=== PATIENT | female | born 1995 | race Caucasian/White ===

== ENCOUNTER 2017-11-14 17:37 | Emergency (ER) | payer MEDICAID ==
[~2017-11-14] VITALS: Ht 165.1 cm; Wt 55.5 kg
[2017-11-14 17:39] VITALS: BP 125/91
[2017-11-14] MEDS ORDERED: IBUPROFEN 200 MG TABLET ONE (18:06)
[2017-11-14] MEDS ORDERED: IBUPROFEN 200 MG TABLET PO ONE (18:30)
== END 2017-11-14 18:23 | disposition home or self-care (01) ==
LOC: ED 18:05
DX: S16.1XXA Strain of muscle, fascia and tendon at neck level, initial encounter (principal); M54.12 Radiculopathy, cervical region; F17.200 Nicotine dependence, unspecified, uncomplicated; X50.1XXA Overexertion from prolonged static or awkward postures, initial encounter; Y93.84 Activity, sleeping; Y99.8 Other external cause status; Y92.89 Other specified places as the place of occurrence of the external cause
CPT/HCPCS: 99283

== ENCOUNTER 2018-03-15 23:14 | Emergency (ER) | payer MEDICAID ==
[~2018-03-15] VITALS: Ht 160 cm; Wt 55.0 kg
[2018-03-15 23:19] VITALS: BP 114/81
[2018-03-15] MEDS ORDERED: ACETAMINOPHEN 500 MG TABLET ONE (23:47)
[2018-03-16] MEDS ORDERED: LIDODERM 5% PATCH TD ONE
[2018-03-16] MEDS ORDERED: ACETAMINOPHEN 500 MG TABLET PO ONE
== END 2018-03-16 00:10 | disposition home or self-care (01) ==
LOC: ED 03-16 00:04
DX: O26.891 Other specified pregnancy related conditions, first trimester (principal); O99.331 Smoking (tobacco) complicating pregnancy, first trimester; Z3A.13 13 weeks gestation of pregnancy; S16.1XXA Strain of muscle, fascia and tendon at neck level, initial encounter; X58.XXXA Exposure to other specified factors, initial encounter; Y93.89 Activity, other specified; Y99.8 Other external cause status; Y92.89 Other specified places as the place of occurrence of the external cause
CPT/HCPCS: 99283

== ENCOUNTER 2018-07-05 05:22 | Outpatient (CLI) | payer MEDICAID ==
[2018-07-05 06:36] LABS: AMPHETAMINE SCREEN, URINE Negative (Negative); BARBITURATE SCREEN, URINE Negative (Negative); BENZODIAZEPINE SCREEN, URINE Negative (Negative); CANNABINOID SCREEN, URINE Negative (Negative); COCAINE SCREEN, URINE Negative (Negative); METHADONE SCREEN, URINE Negative (Negative); OPIATE SCREEN, URINE Negative (Negative)
== END 2018-07-05 05:51 | disposition home or self-care (01) ==
LOC: LDOP 05:22
PROVIDERS: ATTEND Obstetrics & Gynecology
DX: O26.899 Other specified pregnancy related conditions, unspecified trimester (principal); R07.89 Other chest pain; Z3A.00 Weeks of gestation of pregnancy not specified
CPT/HCPCS: 59025; 80307; 99211; G0463

== ENCOUNTER 2018-07-05 06:02 | Emergency (ER) | payer MEDICAID ==
[~2018-07-05] VITALS: Ht 165.1 cm; Wt 64.0 kg
[2018-07-05 06:06] VITALS: BP 107/72
--- NOTE | 2018-07-05 06:11 | NUR ---
PT PRESENTS TO ED C/O R ARM PAINx2 WEEKS AGO AND CPx1 WEEK. STATES CP TIGHT AND PRESSURE WORSE W/ DEEP BREATHING AND LAYING DOWN. PT IS 30 WEEKS . DENIES ANY CARDIAC HX. STATES "MY WHOLE FAMILY HAS SOME KIND OF MEDICAL PROBLEM." PT IS MILDLY TACHYCARDIC. MD AWARE. ALL MONITORING APPLIED. VSS OTHERWISE. CALL LIGHT WITHIN REACH. FAMILY AT BEDSIDE.
--- NOTE | 2018-07-05 06:24 | NUR ---
IV PLACED PER MD ORDER.
[2018-07-05] MEDS ORDERED: ACETAMINOPHEN 325 MG TABLET PO ONE (06:30)
[2018-07-05] MEDS ORDERED: ACETAMINOPHEN 325 MG TABLET ONE (06:55)
--- NOTE | 2018-07-05 06:55 | NUR ---
I AM ASSUMING CARE OF THIS PT AT THIS TIME FROM JESUS (JUAN J) AT THIS TIME. SBAR REPORT WAS EXCHANGED AT THE BEDSIDE.
[2018-07-05 07:00] LABS: BASOPHILS # (AUTO) 0.05 x10^3/uL (0-0.1); BASOPHILS % (AUTO) 0 % (0-1); EOSINOPHILS # (AUTO) 0.11 x10^3/uL (0-0.4); EOSINOPHILS % (AUTO) 1 % (1-7); LYMPHOCYTES # (AUTO) 2.24 x10^3/uL (1-3.4); LYMPHOCYTES % (AUTO) 18 % (22-44); MD NO; MEAN CORPUSCULAR HGB CONC 34.2 g/dL (32.4-35.8); MEAN CORPUSCULAR VOLUME 90.4 fL (80-100); MEAN PLATELET VOLUME 8.5 fL (7.4-10.4); MONOCYTES # (AUTO) 1.04 x10^3/uL (0.2-0.8); MONOCYTES % (AUTO) 9 % (2-9); NEUTROPHILS # (AUTO) 8.74 x10^3/uL (1.8-6.8); NEUTROPHILS % (AUTO) 72 % (42-75); PLATELET COUNT 176 x10^3/uL (130-400); RED BLOOD COUNT 3.92 x10^6/uL (3.82-5.3)
[2018-07-05 07:08] LABS: ANION GAP 8 mmol/L (5-15); CALCIUM 8.8 mg/dL (8.5-10.1); CHLORIDE 109 mmol/L (98-107); CREATININE 0.52 mg/dL (0.55-1.02)
--- NOTE | 2018-07-05 07:18 | NUR ---
PT AMBULATED TO THE RESTROOM WITH A STEADY GAIT. URINE SAMPLE PROVIDED, AND WALKED TO THE LAB FOR ANALYSIS.
[2018-07-05 07:36] LABS: CULTURE INDICATED? YES; MICROSCOPIC INDICATED
== END 2018-07-05 08:29 | disposition home or self-care (01) ==
LOC: ED 07:25
DX: O23.13 Infections of bladder in pregnancy, third trimester (principal); Z3A.29 29 weeks gestation of pregnancy; R07.89 Other chest pain
CPT/HCPCS: 36415; 71046; 80048; 81001; 85025; 87086; 93005; 99284